=== PATIENT | male | born 1975 | race Caucasian/White ===

== ENCOUNTER 2019-03-08 23:37 | Emergency (ER) | payer OTHER ==
[~2019-03-08] VITALS: Ht 154.9 cm; Wt 68.6 kg
[~2019-03-08 23:37] MED LIST: ACET500C5 PO; CLIN300C10 PO; IBUP-1542 PO
[2019-03-08 23:48] VITALS: BP 126/63; PULSE 98; RESP 20; Ht 154.9 cm; Wt 68.6 kg
[2019-03-09] MEDS ORDERED: CLINDAMYCIN 900 MG INJ IM ONE (00:30)
[2019-03-09] MEDS ORDERED: IBUPROFEN 600 MG TAB PO ONE (00:30)
== END 2019-03-09 01:16 | disposition home or self-care (01) ==
LOC: FTE 23:37
DX: L03.116 Cellulitis of left lower limb (principal); F17.210 Nicotine dependence, cigarettes, uncomplicated; Z21 Asymptomatic human immunodeficiency virus [HIV] infection status
CPT/HCPCS: 96372; S0077; Z7502; Z7610